=== PATIENT | male | born 1970 | race Caucasian/White ===

== ENCOUNTER 2016-07-08 09:59 | Emergency (ER) | payer OTHER | END 2016-07-08 11:43 | disposition home or self-care (01) | LOC: ER 09:59 | DX: L03.114 Cellulitis of left upper limb (principal); F17.210 Nicotine dependence, cigarettes, uncomplicated | CPT/HCPCS: 36415; 96365; 96375; J1885; J3370 ==

== ENCOUNTER 2016-07-09 12:32 | Emergency (ER) | payer OTHER | END 2016-07-09 15:21 | disposition home or self-care (01) | LOC: ER 12:32 | DX: L03.114 Cellulitis of left upper limb (principal); F17.210 Nicotine dependence, cigarettes, uncomplicated | CPT/HCPCS: 36415; 96365; 96375; J1885; J3370 ==